=== PATIENT | female | born 1975 | race Caucasian/White ===

== ENCOUNTER 2022-10-30 20:41 | Emergency (ER) | payer OTHER ==
[~2022-10-30] VITALS: Ht 168.9 cm; Wt 61.6 kg
[2022-10-30 20:44] VITALS: BP 128/83; PULSE 70; RESP 18; TEMP 97.8; O2SAT 96
[2022-10-30] MEDS ORDERED: proparacaine 0.5% ophthalmic drops 15ml EACHEYE ONE (22:35)
[2022-10-30] MEDS ORDERED: tobramycin/dexamethasone ophthalmic suspension LEFTEYE ONE (22:45)
== END 2022-10-30 23:58 | disposition home or self-care (01) ==
LOC: ER 20:42
DX: S05.02XA Injury of conjunctiva and corneal abrasion without foreign body, left eye, initial encounter (principal); X58.XXXA Exposure to other specified factors, initial encounter; Y93.89 Activity, other specified; Y92.89 Other specified places as the place of occurrence of the external cause; Y99.8 Other external cause status
CPT/HCPCS: 99283; J7050